=== PATIENT | female | born 1995 ===

== ENCOUNTER 2025-02-05 10:12 | Outpatient (CLI) | payer OTHER | END 2025-02-05 10:14 | disposition home or self-care (01) | LOC: PRENATAL 10:12 | PROVIDERS: ATTEND Obstetrics & Gynecology Maternal & Fetal Medicine | DX: O44.00 Complete placenta previa NOS or without hemorrhage, unspecified trimester (principal); Z14.8 Genetic carrier of other disease; Z3A.20 20 weeks gestation of pregnancy ==

== ENCOUNTER 2025-04-01 10:48 | Outpatient (CLI) | payer OTHER | END 2025-04-01 10:50 | disposition home or self-care (01) | LOC: PRENATAL 10:48 | PROVIDERS: ATTEND Obstetrics & Gynecology Maternal & Fetal Medicine | DX: O26.849 Uterine size-date discrepancy, unspecified trimester (principal); O36.8199 Decreased fetal movements, unspecified trimester, other fetus; O44.00 Complete placenta previa NOS or without hemorrhage, unspecified trimester; Z14.8 Genetic carrier of other disease; Z3A.28 28 weeks gestation of pregnancy ==

== ENCOUNTER 2025-05-10 13:24 | Outpatient (CLI) | payer OTHER | END 2025-05-10 13:25 | disposition home or self-care (01) | LOC: PRENATAL 13:24 | PROVIDERS: ATTEND Obstetrics & Gynecology Maternal & Fetal Medicine | DX: O26.849 Uterine size-date discrepancy, unspecified trimester (principal); O36.8130 Decreased fetal movements, third trimester, not applicable or unspecified; Z14.8 Genetic carrier of other disease; O60.00 Preterm labor without delivery, unspecified trimester; Z3A.34 34 weeks gestation of pregnancy ==